=== PATIENT | male | born 1960 | race African-American/Black ===

== ENCOUNTER 2019-12-13 10:08 | Emergency (ER) | payer SELFPAY ==
[2019-12-13] MEDS ORDERED: hydrALAZINE 20 MG/ML VIAL ONE (10:47)
[2019-12-13 10:49] LABS: #Basophils 0.1 thou/uL (0.0-0.2); #Eosinphils 0.2 thou/uL (0.0-0.7); #Lymphocytes 2.4 thou/uL (1.20-3.40); #Monocytes 0.3 thou/uL (0.11-0.59); #Neutrophils 2.7 thou/uL (1.40-6.50); %Basophils 1.8 % (0.0-1.0); %Eosinophils 3.5 % (0.0-10.0); %Lymphocytes 41.9 % (21.0-51.0); %Monocytes 5.6 % (0.0-10.0); %Neutrophils 47.3 % (42.0-75.0); Hemoglobin 13.5 g/dL (14.0-18.0); Mean Corpuscular HGB CONC 30.1 g/dL (32.0-36.0); Mean Corpuscular Hemoglobin 28.6 pg (27.0-31.0); Mean Corpuscular Volume 95.2 fL (78.0-98.0); Platelet Count 145 thou/uL (130-400); RBC Distribution Width 13.8 % (11.5-14.5); Red Blood Cell (RBC) Count 4.72 mill/uL (4.70-6.10); White Blood Cell (WBC) Count 5.8 thou/uL (4.8-10.8)
[2019-12-13 11:03] LABS: ALT (SGPT) 10 U/L (8-55); AST (SGOT) 15 U/L (5-34); Albumin 4.3 g/dL (3.5-5.0); Alkaline Phosphatase 49 U/L (40-110); Anion Gap 12 mmol/L (10-20); BUN (Urea Nitrogen) 14 mg/dL (8.4-25.7); Bilirubin, Total 0.6 mg/dL (0.2-1.2); CK (CPK) 160 U/L (30-200); Calc. Creatinine Clearance 0 mL/min (70-130); Calcium 9.3 mg/dL (7.8-10.44); Carbon Dioxide 25 mmol/L (22-29); Chloride 109 mmol/L (98-107); Estimated GFR-MDRD 70; Globulin 3.8 g/dL (2.4-3.5); Glucose 88 mg/dL (70-105); Potassium 4.2 mmol/L (3.5-5.1); Protein, Total 8.1 g/dL (6.0-8.3); Sodium 142 mmol/L (136-145)
[2019-12-13] MEDS ORDERED: Aspirin Chewable 81 MG TAB ONE (11:04)
[2019-12-13] MEDS ORDERED: Acetaminophen 500 MG TAB ONE (11:19)
[2019-12-13 11:21] LABS: CKMB 1.2 ng/mL (0-6.6)
[2019-12-13 12:01] LABS: Bilirubin Negative (Negative); Blood, Urine Negative (Negative); Clarity Clear (Clear); Glucose, Urine (Dipstick) Negative (Negative); Leukocyte Negative (Negative); Nitrite Negative (Negative); Protein, Urine (Dipstick) Negative (Neg-Trace); Urobilinogen 0.2 mg/dL (Less than 2)
--- NOTE | 2019-12-13 14:37 | CT ---
CT OF THE BRAIN WITHOUT CONTRAST: Date: 12/13/[address] was done and compared with a 01/24/2010 study. The ventricles are normal in size with no shift. No intracranial bleeding, mass, or sign of stroke wa s seen. There is no sign of edema. There is some mild mucosal thickening in the ethmoid air cells jeff aterally. The other visible portions of the paranasal sinuses and mastoid air cells were clear. IMPRESSION: 1. No acute intracranial findings. 2. Mild mucosal thickening of the ethmoid sinuses. POS: HOME
--- NOTE | 2019-12-13 14:43 | RAD ---
PORTABLE CHEST: Date: 12/13/2019 An AP portable film at 1054 hours is compared with the 07/14/2010 study. The heart size is stable. There is no vascular congestion, edema, or pleural effusion. The lungs are clear. The mediastinum appears normal. IMPRESSION: No acute thoracic findings. POS: HOME
== END 2019-12-13 12:10 | disposition short-term general hospital (02) ==
LOC: BURERS 10:08
DX: I16.1 Hypertensive emergency (principal); R79.89 Other specified abnormal findings of blood chemistry; R51 Headache
CPT/HCPCS: 70450; 71045; 80053; 81003; 82550; 82553; 83880; 84443; 84484; 85025; 93005; 96374; J0360